=== PATIENT | male | born 1995 | race Caucasian/White ===

== ENCOUNTER 2020-06-13 16:04 | Emergency (ER) | payer SELFPAY ==
[2020-06-13 16:16] VITALS: BP 130/70; PULSE 75; RESP 16; TEMP 37.1; O2SAT 96; BMI 31.3
--- NOTE | 2020-06-13 16:17 | ED.GENADULT ---
HPI - General Adult General Chief complaint: General Medical Stated complaint: sore throat Time Seen by Provider: 06/13/20 16:07 History of Present Illness HPI narrative: 24-year-old male who presents to emergency department for evaluation of sore throat x3 days. The pain is located on the right side of his neck only. He describes as a constant, throbbing sensation which is 8/10 at its worst. The pain is worse with swallowing. The patient has no difficulty swallowing liquids or solids. The patient has no difficulty opening his mouth. The patient states that the had a tonsillar abscess 3 years prior which required incision and drainage. He has not had a sore throat since that time. He denied fever, chills, chest pain, shortness of breath, cough, rhinorrhea, abdominal pain. Related Data Previous Rx's Medication Instructions Recorded penicillin V potassium 500 mg PO QID 10 Days #40 tab 06/13/20 Allergies Allergy/AdvReac Type Severity Reaction Status Date / Time No Known Allergies Allergy Verified 06/13/20 16:14 Review of Systems Review of Systems: Yes all other systems are reviewed and are negative Constitutional: Constitutional: Reports as per HPI Eyes: Eyes: Reports as per HPI ENT: Reports as per HPI Cardiovascular: Cardiovascular: Reports as per HPI Respiratory: Respiratory: Reports as per HPI Gastrointestinal: Gastrointestinal: Reports as per HPI Genitourinary: Genitourinary: Reports as per HPI Musculoskeletal: Musculoskeletal: Reports as per HPI Integumentary/Breasts: Skin/Breast: Reports as per HPI Neurologic: Reports as per HPI and Reports Abnormal speech present Psychiatric: Psychiatric: Reports as per HPI Allergic/Immunologic: Allergic/Immunologic: Reports as per HPI [facility] Past Medical History ON LICENSE OF [facility] Narrative: The patient denies tobacco use. He occasionally drinks alcohol. He denies drug use. Medical History Patient denies significant medical history Social History Social History Advance Directives: No Advance Directives Information Provided: No Physical Exam Vital Signs: Vital Signs: Last Vital Signs Temp 98.7 F 06/13/20 16:16 Pulse 75 06/13/20 16:16 Resp 16 06/13/20 16:16 BP 130/70 06/13/20 16:16 Pulse Ox 96 06/13/20 16:16 Body Mass Index 31.3 Const: General: cooperative, healthy appearing and no acute distress Orientation/consciousness: oriented to person, oriented to place and oriented to time HENMT: Head: Yes normal to inspection, Yes normocephalic and Yes atraumatic Ears: hearing grossly normal bilaterally General nose exam: Normal external nose present Face and sinus: Yes normal facial exam Mouth: Normal oral and palatal mucosa present Teeth and gingiva: dentition normal and other (No trismus) Throat: Yes uvula midline and Yes other (Right peritonsillar area is slightly swollen compared to left, right exudat) Eyes: Eyelids: Yes eyelids normal Sclerae: sclerae normal Corneas: corneas normal Pupils: Equal, round and reactive pupils present EOM: EOMs intact bilaterally Neck: Neck: Yes full ROM, Yes no lymphadenopathy and Yes other (Tender with palpation of right-sided neck and her left) Chest: Chest palpation & inspection: normal inspection of the chest Resp: Effort & Inspection: normal respiratory effort and able to speak in complete sentences Auscultation: clear to auscultation bilaterally Cardio: Rate: regular rate Rhythm: regular rhythm Heart sounds: S1 normal heart sound present, S2 normal heart sound present and no murmurs GI: Inspection: Yes normal to inspection Palpation (GI): Soft to palpation, nontender and no guarding Auscultation: normal bowel sounds : General: Yes no CVA tenderness Back/Spine/Pelvis: Back: no CVA tenderness Skin: General skin exam: no rashes or lesions noted Neuro: General: oriented to person, oriented to place and oriented to time Cranial nerves: Yes CN's II-XII intact bilaterally and Yes Equal, round and reactive pupils present Cognition (Neuro): normal cognition Speech: Abnormal speech present Motor exam (neuro): 5/5 motor strength present throughout Extrem: Left upper extremity: normal to inspection Psych: Appearance: well kempt Mental Status: mental status grossly normal Speech and movement: Normal speech and movement present Course Course Course Narrative: 24-year-old male who presents emergency department for evaluation of sore throat x3 days, pain located on the right side his throat only, examination revealed slight swelling of the right tonsil compared to the left with right-sided exudates, uvula is midline, there is no trismus. The patient may have an early tonsillar abscess. The patient started on penicillin 500 mg 4 times a day for 10 days. He is advised to take Tylenol and ibuprofen for pain. The patient was advised to contact ENT on-call if his symptoms get worse especially develops trismus. Discharge Plan Discharge Clinical Impression: Abscess of tonsil Patient Disposition: Home, Self-Care Instructions: Peritonsillar Abscess (ED) Additional Instructions: At this time, I believe that you have a very early abscess of your tonsil and this can be treated pain medications and antibiotics. Take penicillin 500 mg pills, 1 pill 4 times a day for 10 days. It is important that you complete this entire prescription. Take ibuprofen 200 mg pills, 3 pills every 6 hours as needed for pain or fever. Also take Tylenol 500 mg pills, 2 pills every 4-6 hours as needed for pain or fever. If your symptoms get worse, especially if you are having difficulty opening your mouth wide, and the abscess may be getting worse and will need to follow up with ears nose and throat doctor. We do not have an ENT doctor on-call but please contact Dr. Earnest Nieto to see if he will follow you up if needed. Please return to the emergency department if you cannot follow-up with ENT specialist her symptoms are getting worse. Prescriptions: New penicillin V potassium 500 mg tablet 500 mg PO QID 10 Days Qty: 40 RF: 0 Referrals: Earnest Nieto [Physician] - 3 days (Possible early right tonsillar abscess, treated with penicillin)
== END 2020-06-13 16:44 | disposition home or self-care (01) ==
PROVIDERS: Emergency Provider Emergency Medicine Emergency Medical Services
DX: J36 Peritonsillar abscess (principal)
CPT/HCPCS: 99283

== ENCOUNTER 2021-03-20 23:49 | Emergency (ER) | payer OTHER, SELFPAY ==
--- NOTE | ~2021-03-20 | CT_ITS ---
EXAMINATION: CT ABDOMEN AND PELVIS WITHOUT CONTRAST CLINICAL INFORMATION: Right-sided abdominal pain COMPARISON: None TECHNIQUE: Multidetector volumetric imaging was performed from the superior aspect of the liver through the pubic symphysis. Sagittal and coronal reformatted images were obtained on the technologist's workstation. This CT examination was performed using dose optimization techniques as appropriate, variously including the following: *Automated exposure control *Adjustment of mA and/or kV according to patient size (this includes techniques or standardized protocols for targeted exams where dose is matched to indication/reason for exam; i.e. extremities or head) *Use of iterative reconstruction technique DLP: 649 mGy-cm FINDINGS: LUNG BASES: The visualized lung bases are unremarkable. A tiny calcified right middle lobe granuloma is present. LIVER, GALLBLADDER, AND BILIARY TREE: The liver is normal in size, shape, and attenuation. No focal hepatic lesion or biliary ductal dilatation is present. The gallbladder is contracted but otherwise unremarkable with no evidence of radiopaque gallstones, gallbladder wall thickening, or obvious pericholecystic inflammatory changes. PANCREAS: Unremarkable. SPLEEN: Unremarkable. ADRENAL GLANDS: Unremarkable. KIDNEYS AND URETERS: The kidneys are normal in size, shape, and attenuation. No hydronephrosis, hydroureter, or calculi seen. No perinephric stranding. BLADDER: Unremarkable. GASTROINTESTINAL TRACT: The small and large bowel are unremarkable. The appendix is unremarkable. ABDOMINAL WALL: No significant hernia is appreciated. LYMPH NODES: Normal. VASCULAR: Unremarkable. PELVIC VISCERA: Prostate and seminal vesicles appear normal. OSSEOUS STRUCTURES: Unremarkable. CT/CT abdomen pelvis wo con IMPRESSION: No significant abnormality. A cause for the patient's right-sided abdominal pain has not been found.
[2021-03-20 23:56] VITALS: BP 139/76; PULSE 68; RESP 18; TEMP 37.2; O2SAT 97; BMI 29.7
[2021-03-21 00:13] LABS: MANUAL DIFF FLAG NO
[2021-03-21 00:15] LABS: Basophils Percent Auto 0.3 % (0-2); Eosinophils Absolute Auto 0.1 X10*3/uL (0.0-0.4); Eosinophils Percent Auto 0.9 % (0-4); Hematocrit 46.7 % (42-52); Hemoglobin 15.9 g/dl (14.0-18.0); Imm Gran Abs Auto 0.04 X10*3/uL (0.00-0.03); Imm Gran Pct Auto 0.4 % (0.0-0.4); Lymphocytes Absolute Auto 2.9 X10*3/uL (1.2-4.9); Lymphocytes Percent Auto 27.4 % (20-40); Mean Corpuscular Hemoglobin 29.3 pg (27.0-33.0); Mean Platelet Volume 9.9 fL (9.4-12.4); Monocytes Absolute Auto 0.7 X10*3/uL (0.1-1.2); Monocytes Percent Auto 6.4 % (2-11); Neutrophils Absolute Auto 6.9 X10*3/uL (2.0-8.3); Neutrophils Percent Auto 64.6 % (45-73); Platelet Count 286 X10*3/uL (160-400); Red Blood Count 5.43 X10*6/uL (4.60-5.80); Red Cell Distribution Width 12.8 % (11.0-16.0); White Blood Count 10.7 X10*3/uL (4.8-10.8)
[2021-03-21 00:15] LABS: Appearance Urine CLEAR; Color Urine YELLOW; Glucose Urine UA NEG (NEG); Leukocyte Esterase Urine NEG (NEG); Nitrite Urine NEG (NEG); Specific Gravity - Urine 1.025 (1.005-1.025); Urine Blood NEG (NEG); Urine Ketones NEG (NEG); Urine Protein NEG (NEG-TRACE)
[2021-03-21 00:28] LABS: Alanine Aminotransferase 32 U/L (0-40); Albumin Level 4.5 g/dL (3.5-5.0); Alkaline Phosphatase 46 U/L (39-117); Anion Gap 12 (12-20); Aspartate Amino Transferase 29 U/L (5-37); Bilirubin Total 0.5 mg/dL (0.0-1.0); Blood Urea Nitrogen 17 mg/dL (9-16); Calcium 9.9 mg/dL (8.4-10.2); Carbon Dioxide 26 mmol/L (22-29); Chloride 105 mmol/L (96-108); Creatinine Clr Calc Pharmacy 104.3; Estimated Glomerular Filt Rate > 60; Glucose Random 94 mg/dL (60-115); Potassium 3.9 mmol/L (3.3-5.1); Sodium 139 mmol/L (135-145); Total Protein 7.4 g/dL (6.5-8.0)
--- NOTE | 2021-03-21 00:40 | ED_ITS ---
HPI - Abdominal Pain General Chief Complaint: Abdominal Pain Stated Complaint: Abd pain Time Seen by Provider: 03/21/21 00:01 Source: patient Mode of arrival: ambulatory Limitations: no limitations History of Present Illness HPI narrative: Patient been having pain in the right mid and right lower quadrant for last 1 week off and on got worse in last 2 days especially today associated with nausea no fever no chills no urine complaints no diarrhea patient feels hungry otherwise ambulatory without any significant distress patient had labs done prior to seen by myself showed normal WBC count with UA negative Related Data Previous Rx's Medication Instructions Recorded penicillin V potassium 500 mg 500 mg PO QID 10 Days #40 tab 06/13/20 tablet Allergies Allergy/AdvReac Type Severity Reaction Status Date / Time No Known Allergies Allergy Verified 03/20/21 23:56 Review of Systems Review of Systems Yes all other systems are reviewed and are negative Physical Exam Vital Signs: Vital Signs: Last Vital Signs Temp 98.0 F 03/21/21 00:58 Pulse 55 03/21/21 00:58 Resp 16 03/21/21 00:58 BP 130/84 03/21/21 00:58 Pulse Ox 97 03/21/21 00:58 Body Mass Index 29.7 Appearance: Alert. Oriented X3. No acute distress. Eyes: PERRLA, No Nystagmus ENT: Pharynx normal. Oral Mucosa moist Neck: Normal inspection. Neck supple. CVS: Normal heart rate and rhythm. Pulses normal. Respiratory: No respiratory distress. Equal air entry bilateral, no wheezing/rales/rhonchi Abdomen: Soft, mild tenderness right mid abdomen and right lower quadrant without any rebound tenderness or guarding, Bowel sounds are present, no mass palpable, no CVA tenderness Skin: Skin warm and dry. Normal skin color. Normal skin turgor. Extremities: No lower extremity edema. No calf tenderness Neuro: Oriented X 3. MDM - Abdominal Pain MDM Narrative Medical decision making narrative: Patient has nonspecific pain right side with normal labs and normal urine unlikely anything major likely related to the abimael wels. Will get CT scan abdomen to rule out any kidney stone Lab Data Attestation: I reviewed the patient's lab results. Result diagrams: 03/21/21 00:05 03/21/21 00:05 Labs: Lab Results 03/21/21 03/21/21 03/21/21 Range/Units 00:05 00:05 00:09 WBC 10.7 (4.8-10.8) X10*3/uL RBC 5.43 (4.60-5.80) X10*6/uL Hgb 15.9 (14.0-18.0) g/dl Hct 46.7 (42-52) % MCV 86.0 (80-98) fL MCH 29.3 (27.0-33.0) pg MCHC 34.0 (31.0-36.0) g/dl RDW 12.8 (11.0-16.0) % Plt Count 286 (160-400) X10*3/uL MPV 9.9 (9.4-12.4) fL Immature Gran % (Auto) 0.4 (0.0-0.4) % Neut % (Auto) 64.6 (45-73) % Lymph % (Auto) 27.4 (20-40) % [place] % (Auto) 6.4 (2-11) % Eos % (Auto) 0.9 (0-4) % Baso % (Auto) 0.3 (0-2) % Lymph # (Auto) 2.9 (1.2-4.9) X10*3/uL [place] # (Auto) 0.7 (0.1-1.2) X10*3/uL Eos # (Auto) 0.1 (0.0-0.4) X10*3/uL Baso # (Auto) 0.0 (0.0-0.2) X10*3/uL Abs Immat Gran (auto) 0.04 H (0.00-0.03) X10*3/uL Absolute Neuts (auto) 6.9 (2.0-8.3) X10*3/uL Absolute Nucleated RBC 0.000 (0.0-0.012) X10*3/uL Nucleated RBC % (auto) 0.0 (0.0-0.2) /100WBC Sodium 139 (135-145) mmol/L Potassium 3.9 (3.3-5.1) mmol/L Chloride 105 (96-108) mmol/L Carbon Dioxide 26 (22-29) mmol/L Anion Gap 12 (12-20) BUN 17 H (9-16) mg/dL Creatinine 1.15 (0.5-1.4) mg/dL Estim Creat Clear Calc 104.3 Estimated GFR > 60 Random Glucose 94 (60-115) mg/dL Calcium 9.9 (8.4-10.2) mg/dL Total Bilirubin 0.5 (0.0-1.0) mg/dL AST 29 (5-37) U/L ALT 32 (0-40) U/L Alkaline Phosphatase 46 (39-117) U/L Total Protein 7.4 (6.5-8.0) g/dL Albumin 4.5 (3.5-5.0) g/dL Urine Color YELLOW Urine Appearance CLEAR Urine pH 6.0 (5.0-8.0) Ur Specific [place] 1.025 (1.005-1.025) Urine Protein NEG (NEG-TRACE) MG/DL Urine Glucose (UA) NEG (NEG) MG/DL Urine Ketones NEG (NEG) MG/DL Urine Blood NEG (NEG) Urine Nitrite NEG (NEG) Ur Leukocyte Esterase NEG (NEG) Discharge Plan Discharge Clinical Impression: Abdominal pain Qualifiers: Abdominal location: lower abdomen, unspecified Qualified Code(s): R10.30 - Lower abdominal pain, unspecified Prescriptions: No Action penicillin V potassium 500 mg tablet 500 mg PO QID 10 Days Qty: 40 RF: 0 PMFSH Past Medical History Medical History Patient denies significant medical history Social History Social History Advance Directives: No Advance Directives Information Provided: Yes
[2021-03-21 00:58] VITALS: BP 130/84; PULSE 55; RESP 16; TEMP 36.7; O2SAT 97
== END 2021-03-21 02:58 | disposition home or self-care (01) ==
PROVIDERS: Student in an Organized Health Care Education/Training Program; Emergency Provider Internal Medicine
DX: R10.30 Lower abdominal pain, unspecified (principal)
CPT/HCPCS: 36415; 74176; 80053; 81003; 85025; 99284

== ENCOUNTER 2021-04-09 21:27 | Emergency (ER) | payer OTHER, SELFPAY ==
[2021-04-09 21:28] VITALS: BP 141/76; PULSE 95; RESP 18; TEMP 37.1; O2SAT 97; BMI 30.5
--- NOTE | 2021-04-10 00:46 | ED_ITS ---
HPI - General Adult General Chief complaint: Dizziness Stated complaint: dizziness Time Seen by Provider: 04/10/21 00:21 Source: patient Limitations: no limitations History of Present Illness HPI narrative: Patient states for approximately the last 2 weeks he has been having some right-sided throat pain. He occasionally feels dizzy which he describes is just not feeling right. No vertigo type sensation. No off-balance sensation. No near syncopal sensations. When he gets these episodes he states he gets chest pain and feels very anxious. They started when he was visiting down in [place]. He had a workup there which included a CT scan of his brain and neck. They were normal. He was started on antibiotics and meclizine. He states he did feel better on the meclizine but otherwise the symptoms did not improve. He comes to the emergency department tonight for re-evaluation. No nausea vomiting. No fevers chills. He was tested for COVID 2 weeks ago in [place] and was negative. He is not vaccinated. Related Data Previous Rx's Medication Instructions Recorded penicillin V potassium 500 mg 500 mg PO QID 10 Days #40 tab 06/13/20 tablet ibuprofen 800 mg tablet 800 mg PO TID PRN #30 tab 04/10/21 Allergies Allergy/AdvReac Type Severity Reaction Status Date / Time No Known Allergies Allergy Verified 03/20/21 23:56 Review of Systems Constitutional: Constitutional: Denies fever(s) ENT: Comments: Right-sided submandibular discomfort and lymphadenopathy Cardiovascular: Comments: Occasional chest pain when he gets anxious Respiratory: Comments: No cough or dyspnea Gastrointestinal: Comments: No vomiting. Positive diarrhea, several episodes Integumentary/Breasts: Comments: No rash or change in color Neurologic: Comments: No weakness numbness or paresthesias [facility] Past Medical History Medical History Patient denies significant medical history Social History Social History Alcohol intake: current Alcohol intake frequency: holidays/special occasions only Patient Tobacco Use Status: Never used Tobacco Advance Directives: No Physical Exam Vital Signs: Vital Signs: Last Vital Signs Temp 98.8 F 04/09/21 21:28 Pulse 95 04/09/21 21:28 Resp 18 04/09/21 21:28 BP 141/76 H 04/09/21 21:28 Pulse Ox 97 04/09/21 21:28 Body Mass Index 30.5 HENMT: Other: Left TM is normal. Right canal with cerumen impaction. Unable to evaluate the TM. No submandibular lymphadenopathy. Throat with erythema but no exudate. No tonsillar enlargement. Course Course Course Narrative: Patient with vague dizzy sensations not consistent with either vertigo or presyncopal etiology. He is possibly having anxiety related to this. He states he has frequent episodes of strep throat requiring antibiotics several times yearly. He feels like his throat pain is similar to multiple prior episodes of strep throat. Will performstrep and COVID test here in the emergency department. 1:25 a.m.. COVID and strep test were negative. Stable for discharge home follow-up with your nose and throat Medical Decision Making Lab Data Labs: Lab Results 04/10/21 04/10/21 Range/Units 01:00 01:00 COVID-19 (TONYA) Negative (Negative) COVID-19 Clin Com See Note S. pyogenes GrpA SANG Negative (Negative) Discharge Plan Discharge Clinical Impression: Pharyngitis Qualifiers: Pharyngitis/tonsillitis etiology: unspecified etiology Qualified Code(s): J02.9 - Acute pharyngitis, unspecified Patient Disposition: Home, Self-Care Instructions: Pharyngitis (ED) Prescriptions: New ibuprofen 800 mg tablet 800 mg PO TID PRN (Reason: pain) Qty: 30 RF: 0 No Action penicillin V potassium 500 mg tablet 500 mg PO QID 10 Days Qty: 40 RF: 0 Referrals: Earnest Nieto [Physician] - 2 days
[2021-04-10 01:13] LABS: Strep A Nucleic Acid Negative (Negative)
[2021-04-10 01:19] LABS: COVID-19 Test Negative (Negative); IDNOW Serial# 9DD0AD1C
== END 2021-04-10 01:50 | disposition home or self-care (01) ==
PROVIDERS: Emergency Provider Emergency Medicine
DX: J02.9 Acute pharyngitis, unspecified (principal); R42 Dizziness and giddiness; Z20.822 Contact with and (suspected) exposure to COVID-19
CPT/HCPCS: 36415; 87635; 87651; 99283

== ENCOUNTER 2021-04-26 22:23 | Emergency (ER) | payer OTHER, SELFPAY ==
[2021-04-26 23:16] VITALS: BP 113/72; PULSE 87; RESP 16; TEMP 37.2; O2SAT 95; BMI 30.5
[2021-04-27 02:17] VITALS: BP 140/71; PULSE 78; RESP 18; O2SAT 96
[2021-04-27] MEDS: Acetaminophen 325 MG TABLET 975 MG PO (03:16)
[2021-04-27] MEDS: Ketorolac Tromethamine 15 MG/ML VIAL IM (03:17)
--- NOTE | 2021-04-27 03:38 | ED_ITS ---
HPI - Headache General Chief Complaint: Headache Stated Complaint: Headache Time Seen by Provider: 04/27/21 01:14 Source: patient Mode of arrival: ambulatory History of Present Illness HPI Narrative: 25-year-old male without significant past medical history presents for headache for 2 weeks that is been like in nature on his head has not been associated with fever, chills, nausea, vomiting, neck pain. Patient states that he was evaluated by ENT approximately 2 weeks ago. He states that his headache has increased with pain and states blurred vision within the right eye. However this is not prevented him from driving for the past 2 weeks but patient is having nausea as well as photosensitivity but otherwise denies any unilateral numbness/tingling/weakness. Patient has not had COVID-19 vaccine. Related Data Previous Rx's Medication Instructions Recorded penicillin V potassium 500 mg 500 mg PO QID 10 Days #40 tab 06/13/20 tablet ibuprofen 800 mg tablet 800 mg PO TID PRN #30 tab 04/10/21 ketorolac 10 mg tablet 10 mg PO Q6H PRN 5 Days #20 tab 04/27/21 Allergies Allergy/AdvReac Type Severity Reaction Status Date / Time No Known Allergies Allergy Verified 04/26/21 23:15 Review of Systems Review of Systems: Pertinent positives and negatives as stated in HPI 10 point review systems is otherwise negative. PMFSH Past Medical History Source: nursing notes reviewed Medical History Patient denies significant medical history Social History Social History Alcohol intake: current Alcohol intake frequency: holidays/special occasions only Patient Tobacco Use Status: Never used Tobacco Advance Directives: No Advance Directives Information Provided: Yes Physical Exam Vital Signs: Vital Signs: Last Vital Signs Temp 98.9 F 04/26/21 23:16 Pulse 78 04/27/21 02:17 Resp 18 04/27/21 02:17 BP 140/71 H 04/27/21 02:17 Pulse Ox 96 04/27/21 02:17 Body Mass Index 30.5 VITAL SIGNS: Reviewed. GENERAL: Well developed, well nourished, in no acute distress. HEAD: Normocephalic/atraumatic EYES: PERRLA, EOMI with conjunctival injection EARS: Ext canals without abnormality, TMs non-bulging and non-erythematous NOSE: Nares patent bilateral OROPHARYNX: no oral lesions noted, posterior pharynx clear and non-erythematous without noted tonsillar enlargement/erythema/exudates NECK: Supple, no adenopathy LUNGS: Normal breath sounds. No adventitious sounds or accessory muscle use. SpO2<96> CARDIOVASCULAR: Regular rate and rhythm without noted murmurs ABDOMEN: Soft, non-tender, non-distended with bowel sounds. SKIN: Inspection of the skin reveals no rashes NEUROLOGIC: Alert and oriented x 4. Strength and sensation to light touch were grossly intact x 4. Course Course Course Narrative: 25-year-old male with a headache for 2 weeks no evidence to suggest infection, but no history of migraines and with sore throat suggestive of possible viral etiology. There are no focal findings and low clinical suspicion for meningitis. Review of all investigations are negative for acute findings and on re- evaluation patient is feeling much better. He will be discharged in stable condition and was instructed to follow-up with his primary care provider for further outpatient management. MDM - Headache Lab Data Labs: Lab Results 04/27/21 Range/Units 03:12 Coronavirus (PCR) NEGATIVE (Negative) Influenza Type A (PCR) NEGATIVE (Negative) Influenza Type B (PCR) NEGATIVE (Negative) RSV RNA Qual (PCR) NEGATIVE (Negative) Discharge Plan Discharge Clinical Impression: Headache Patient Disposition: Home, Self-Care Instructions: General Headache (ED) Additional Instructions: 1. Tylenol 1000 mg, orally, every 6 hours as needed for pain control. Do not exceed 4000 mg within 24 hours. 2. Follow-up with your primary care provider by calling the office on Thursday morning and attempted to get on a standby list for a quicker appointment. Return to the ER for acute worsening of symptoms. Prescriptions: New ketorolac 10 mg tablet 10 mg PO Q6H PRN (Reason: pain) 5 Days Qty: 20 RF: 0 No Action penicillin V potassium 500 mg tablet 500 mg PO QID 10 Days Qty: 40 RF: 0 ibuprofen 800 mg tablet 800 mg PO TID PRN (Reason: pain) Qty: 30 RF: 0 Referrals: Payal Chong MD [Primary Care Provider] - 2 days
[2021-04-27 03:55] LABS: Influenza A PCR NEGATIVE (Negative); Influenza B PCR NEGATIVE (Negative); Resp Syncy Virus RNA Qual PCR NEGATIVE (Negative); SARS COV2 PCR INHOUSE NEGATIVE (Negative)
== END 2021-04-27 04:57 | disposition home or self-care (01) ==
PROVIDERS: Emergency Provider Student in an Organized Health Care Education/Training Program; PCP Internal Medicine
DX: R51.9 Headache, unspecified (principal); Z20.822 Contact with and (suspected) exposure to COVID-19; Z79.899 Other long term (current) drug therapy
CPT/HCPCS: 0241U; 36415; 96372; 99284; J1885